=== PATIENT | male | born 1935 | race Native Hawaiian/Other Pacific Islander ===

== ENCOUNTER → 2018-12-23 | Outpatient (CLI) | payer MEDICARE ==
[~2018-12-23] MED LIST: SODIUM CHLORIDE 0.9% 500 ML 500 ML in EMPTY BAG 1 BAG IV PRN
[2018-12-23 12:01] VITALS: PULSE 65
[2018-12-23 12:37] LABS: Glucose,Whole Blood 172 mg/dL (75-99)
[2018-12-23 12:56] VITALS: BP 113/55; RESP 16; TEMP 98.4
== END ==
LOC: PROCWHC3 09:12
PROVIDERS: ATTEND Internal Medicine Hematology & Oncology
DX: D63.8 Anemia in other chronic diseases classified elsewhere (principal)
CPT/HCPCS: 86900; 86901; 86850; 86920; 36430; P9016